=== PATIENT | male | born 1990 | race Caucasian/White ===

== ENCOUNTER → 2016-12-29 | Day surgery (SDC) | payer BC, OTHER ==
[~2016-12-29] VITALS: Ht 193 cm; Wt 77.6 kg
[~2016-12-29] MED LIST: NORCO 10-325 T1 EACH PO
[2016-12-29 08:10] LABS: HEMOGLOBIN 16.4 gm/dl (14.0-17.5); RED BLOOD COUNT 5.57 M/UL (4.20-5.50); WHITE BLOOD COUNT 5.9 K/UL (4.5-11.0)
[2016-12-29 08:26] LABS: BUN/CREATININE RATIO 11 (0-10)
== END | disposition home or self-care (01) ==
LOC: OR 07:23
PROVIDERS: Orthopaedic Surgery
PROC: 0PST04Z Reposition Right Finger Phalanx with Internal Fixation Device, Open Approach (ICD-10-PCS; principal; 2016-12-29 09:15)
DX: S62.616A Displaced fracture of proximal phalanx of right little finger, initial encounter for closed fracture (principal); Z88.1 Allergy status to other antibiotic agents; X58.XXXA Exposure to other specified factors, initial encounter
CPT/HCPCS: 73140; 76000; 80048; 85025; J2250; J3010; J7120